=== PATIENT | male | born 1945 | race African-American/Black ===

== ENCOUNTER → 2018-01-06 | Outpatient (CLI) | payer MEDICARE ==
[~2018-01-06] MED LIST: ASPI-1160 PO; COR3 PO; KEPP500 PO
== END | disposition home or self-care (01) ==
LOC: CARD 08:28
PROVIDERS: ATTEND Psychiatry & Neurology Neurology
DX: R56.9 Unspecified convulsions (principal); E78.5 Hyperlipidemia, unspecified; I10 Essential (primary) hypertension

== ENCOUNTER 2018-01-17 06:58 | Emergency (ER) | payer MEDICARE ==
[~2018-01-17] VITALS: Ht 182.9 cm; Wt 78.0 kg
[2018-01-17] MEDS ORDERED: ALBUTEROL (0.083%) 2.5MG/3ML NEB HHN STA (07:22)
[2018-01-17 07:51] LABS: CHLORIDE 94 mEq/L (98-107); HEMATOCRIT. 30.1 % (42.0-52.0); HEMOGLOBIN. 10.5 g/dL (14.0-18.0); MEAN CORPUSCULAR HEMOGLOBIN 30.4 pg (28.0-32.0); MEAN CORPUSCULAR VOLUME 87.1 fL (80.0-94.0); MEAN PLATELET VOLUME 7.9 fl (7.4-10.4); PLATELET 281 x1000/uL (130-400); RED BLOOD CELL COUNT 3.46 mill/uL (4.7-6.1); RED CELL DISTRIBUTION WIDTH 12.7 % (11.6-14.6)
[2018-01-17 08:12] LABS: PLATELET ESTIMATE NORMAL
[2018-01-17 09:39] VITALS: BP 136/70
== END 2018-01-17 09:53 | disposition home or self-care (01) ==
LOC: ER 07:29
DX: J18.9 Pneumonia, unspecified organism (principal); I10 Essential (primary) hypertension; G40.909 Epilepsy, unspecified, not intractable, without status epilepticus; Z79.899 Other long term (current) drug therapy
CPT/HCPCS: 36415; 71045; 80053; 85025; 94640; 99285; J7611

== ENCOUNTER → 2018-06-25 | Outpatient (CLI) | payer MEDICARE ==
[~2018-06-25] MED LIST changes: +ALBU18HF2 IH; -COR3 PO; +HYDR25TA PO; +IOHEXOL-300 100 ML BOTTLE ONE; +PANT40TA4 PO; +ROPI0.257 PO
== END | disposition home or self-care (01) ==
LOC: CT 07:37
PROVIDERS: ATTEND Internal Medicine Gastroenterology
DX: R91.8 Other nonspecific abnormal finding of lung field (principal)
CPT/HCPCS: 71260; Q9967

== ENCOUNTER 2021-09-26 12:19 | Emergency (ER) | payer MEDICARE ==
[~2021-09-26] VITALS: Ht 182.9 cm; Wt 77.0 kg
[~2021-09-26 12:19] MED LIST changes: -IOHEXOL-300 100 ML BOTTLE ONE; -PANT40TA4 PO; +PANT40TA51 PO
[2021-09-26 15:12] VITALS: BP 135/50
== END 2021-09-26 15:12 | disposition home or self-care (01) ==
LOC: ER 12:19
DX: Z00.00 Encounter for general adult medical examination without abnormal findings (principal); M19.90 Unspecified osteoarthritis, unspecified site; I10 Essential (primary) hypertension; Z79.82 Long term (current) use of aspirin; Z87.01 Personal history of pneumonia (recurrent)
CPT/HCPCS: 99281